=== PATIENT | male | born 1940 ===

== ENCOUNTER 2017-02-15 10:04 | Day surgery (SDC) | payer MEDICARE, OTHER ==
[2017-02-15 10:38] VITALS: BMI 29.2
--- NOTE | 2017-02-15 11:17 | CP.SDSHP ---
Same Day Surgery H & P - History Proposed Procedure: COLONSCOPY Pre-Op Diagnosis: SEE NOTES - Allergies Allergies: Allergies No Known Allergies Allergy (Verified 02/15/17 10:37) - Physical Exam General Appearance: N Vital Signs: Vital Signs 02/15/17 10:41 Temperature 97.5 F L Pulse Rate 72 Respiratory 19 Rate Blood Pressure 157/80 H O2 Sat by Pulse 98 Oximetry Mental Status: Alert & Oriented x3 Neuro: WNL Heart: Other Lungs: WNL GI: Other - {Optional Preform as Required} Breast: WNL Abdomen: Other Rectal: Other Integument: WNL : WNL Ortho: WNL ENT: WNL - Impression Pt. Evaluated Today:Candidate for Anesthesia & Procedure: Yes - Date & Time Time: :17 Short Stay Discharge - Short Stay Discharge Admitting Diagnosis/Reason for Visit: COLON POLYP Disposition: HOME/ ROUTINE
[2017-02-15] MEDS ORDERED: Pantoprazole 40 mg EC Tab PO ONE (11:19)
[2017-02-15] MEDS ORDERED: Belladonna-Phenobarbital PO STA (11:19)
[2017-02-15 12:09] VITALS: TEMP 98.9
[2017-02-15 12:15] VITALS: O2SAT 99
[2017-02-15 12:55] VITALS: BP 153/87; PULSE 68; RESP 18
== END 2017-02-15 12:52 | disposition home or self-care (01) ==
LOC: C.ENDO 10:04
PROVIDERS: ATTEND Specialist
DX: K62.1 Rectal polyp (principal); K64.8 Other hemorrhoids; K52.9 Noninfective gastroenteritis and colitis, unspecified; K57.90 Diverticulosis of intestine, part unspecified, without perforation or abscess without bleeding
CPT/HCPCS: 45388; 82948; 88305; J2001

== ENCOUNTER 2017-10-12 08:29 | Day surgery (SDC) | payer MEDICARE, OTHER ==
[2017-10-12 09:01] VITALS: BMI 31.0
--- NOTE | 2017-10-12 10:10 | CP.SDSHP ---
Same Day Surgery H & P - History Proposed Procedure: EGD Pre-Op Diagnosis: SEE NOTES - Previous Medical/Surgical History Cardiac: Hypertension Endocrine/Metabolic: Diabetes, Other Neuro: Other Misc: Other Pain: 4.Moderate Pain - Allergies Allergies: Allergies No Known Allergies Allergy (Verified 10/12/17 09:00) - Physical Exam General Appearance: N Vital Signs: Vital Signs 10/12/17 09:22 Temperature 98 F Pulse Rate 70 Respiratory 19 Rate Blood Pressure 142/77 O2 Sat by Pulse 99 Oximetry Mental Status: Alert & Oriented x3 Neuro: Other Heart: Other Lungs: WNL GI: Other - {Optional Preform as Required} Breast: WNL Abdomen: Other Rectal: Other Integument: WNL : Other Ortho: WNL ENT: WNL - Impression Pt. Evaluated Today:Candidate for Anesthesia & Procedure: Yes - Date & Time Time: 10:10 Short Stay Discharge - Short Stay Discharge Admitting Diagnosis/Reason for Visit: ACUTE GASTRITIS WITHOUT BLEEDING Disposition: HOME/ ROUTINE
[2017-10-12] MEDS ORDERED: Pantoprazole 40 mg EC Tab PO STA (10:11)
[2017-10-12] MEDS ORDERED: Belladonna-Phenobarbital PO STA (10:11)
[2017-10-12 11:09] VITALS: PULSE 68; TEMP 97.4; O2SAT 97
[2017-10-12 13:12] VITALS: BP 136/72; RESP 13
== END 2017-10-12 11:30 | disposition home or self-care (01) ==
LOC: C.ENDO 08:29
PROVIDERS: ATTEND Specialist
DX: R10.13 Epigastric pain (principal); R11.2 Nausea with vomiting, unspecified; K21.0 Gastro-esophageal reflux disease with esophagitis; K44.9 Diaphragmatic hernia without obstruction or gangrene; E11.9 Type 2 diabetes mellitus without complications; I10 Essential (primary) hypertension